=== PATIENT | male | born 1965 | race American Indian/Alaskan Native ===

== ENCOUNTER 2016-11-04 09:29 | Emergency (ER) | payer SELFPAY ==
[2016-11-04 09:44] VITALS: BP 152/95
--- NOTE | 2016-11-04 10:01 | Emergency Department Report ---
ED ENT HPI - General Chief complaint: Earache Stated complaint: RIGHT EAR PAIN Time Seen by Provider: 11/04/16 09:56 Source: patient Mode of arrival: Ambulatory Limitations: No Limitations - History of Present Illness Initial comments: 51 y/o male complain of possible bug in right ear x 3 days .pt state his right ear feel clogged up and think maybe a bug flew in his right ear x 3 days..pt denies any hearing loss or drainage from ear . complaint: ear pain Onset/Timin -: days(s) Location: R ear Severity scale (0 -10): 0 Consistency: now resolved Improves with: none Worsens with: none - Related Data Home Medications Medication Instructions Recorded Confirmed Last Taken Aspirin [Adult Low Dose Aspirin EC] 81 mg PO QDAY 11/04/16 11/04/16 11/03/16 07: 00 Carvedilol [Coreg] 25 mg PO BID 11/04/16 11/04/16 11/04/16 07:00 amLODIPine [Norvasc] 10 mg PO DAILY 11/04/16 11/04/16 11/04/16 07:00 Previous Rx's Medication Instructions Recorded Last Taken Type Amoxicillin [Amoxicillin TAB] 875 mg PO BID #14 tablet 11/04/16 Unknown Rx Cetirizine HCl [ZyrTEC] 10 mg PO BID #30 capsule 11/04/16 Unknown Rx Allergies Allergy/AdvReac Type Severity Reaction Status Date / Time No Known Allergies Allergy Unverified 11/04/16 09:38 ED Dental HPI - General Chief complaint: Earache Stated complaint: RIGHT EAR PAIN Time Seen by Provider: 11/04/16 09:56 Source: patient Mode of arrival: Ambulatory Limitations: No Limitations - Related Data Home Medications Medication Instructions Recorded Confirmed Last Taken Aspirin [Adult Low Dose Aspirin EC] 81 mg PO QDAY 11/04/16 11/04/16 11/03/16 07: 00 Carvedilol [Coreg] 25 mg PO BID 11/04/16 11/04/16 11/04/16 07:00 amLODIPine [Norvasc] 10 mg PO DAILY 11/04/16 11/04/16 11/04/16 07:00 Previous Rx's Medication Instructions Recorded Last Taken Type Amoxicillin [Amoxicillin TAB] 875 mg PO BID #14 tablet 11/04/16 Unknown Rx Cetirizine HCl [ZyrTEC] 10 mg PO BID #30 capsule 11/04/16 Unknown Rx Allergies Allergy/AdvReac Type Severity Reaction Status Date / Time No Known Allergies Allergy Unverified 11/04/16 09:38 ED Review of Systems ROS: Stated complaint: RIGHT EAR PAIN Other details as noted in HPI Constitutional: denies: chills, fever Eyes: denies: eye pain, eye discharge, vision change ENT: ear pain. denies: throat pain Respiratory: denies: cough, shortness of breath, wheezing Cardiovascular: denies: chest pain, palpitations Endocrine: no symptoms reported Gastrointestinal: denies: abdominal pain, nausea, diarrhea Genitourinary: denies: urgency, dysuria Musculoskeletal: denies: back pain, joint swelling, arthralgia Skin: denies: rash, lesions Neurological: denies: headache, weakness, paresthesias Psychiatric: denies: anxiety, depression Hematological/Lymphatic: denies: easy bleeding, easy bruising ED Past Medical Hx - Past Medical History Hx Hypertension: Yes - Surgical History Hx Appendectomy: Yes - Social History Smoking Status: Current Every Day Smoker Substance Use Type: None - Medications Home Medications: Home Medications Medication Instructions Recorded Confirmed Last Taken Type Amoxicillin [Amoxicillin TAB] 875 mg PO BID #14 tablet 11/04/16 Unknown Rx Aspirin [Adult Low Dose Aspirin EC] 81 mg PO QDAY 11/04/16 11/04/16 11/03/16 07: 00 History Carvedilol [Coreg] 25 mg PO BID 11/04/16 11/04/16 11/04/16 07:00 History Cetirizine HCl [ZyrTEC] 10 mg PO BID #30 capsule 11/04/16 Unknown Rx amLODIPine [Norvasc] 10 mg PO DAILY 11/04/16 11/04/16 11/04/16 07:00 History ED Physical Exam - General Limitations: No Limitations General appearance: alert, in no apparent distress - Head Head exam: Present: atraumatic, normocephalic - Eye Eye exam: Present: normal appearance, PERRL - ENT ENT exam: Present: mucous membranes moist - Expanded ENT Exam Expanded Ear exam: Present: normal external inspection TM/Canal exam: Erythema: Right TM, Effusion: Right TM Mouth exam: Present: normal external inspection Teeth exam: Present: normal inspection Throat exam: Positive: normal inspection - Neck Neck exam: Present: normal inspection - Respiratory Respiratory exam: Present: normal lung sounds bilaterally. Absent: respiratory distress - Cardiovascular Cardiovascular Exam: Present: regular rate, normal rhythm. Absent: systolic murmur, diastolic murmur, rubs, gallop - GI/Abdominal GI/Abdominal exam: Present: soft, normal bowel sounds - Rectal Rectal exam: Present: deferred - Extremities Exam Extremities exam: Present: normal inspection - Back Exam Back exam: Present: normal inspection - Neurological Exam Neurological exam: Present: alert, oriented X3 - Psychiatric Psychiatric exam: Present: normal affect, normal mood - Skin Skin exam: Present: warm, dry, intact, normal color. Absent: rash ED Course Vital Signs 11/04/16 09:35 Temperature 99.0 F Pulse Rate 72 Respiratory 19 Rate Blood Pressure 152/95 O2 Sat by Pulse 100 Oximetry ED Medical Decision Making - Medical Decision Making Right otitis media with effusion .pt state that he will follow up with primary care doctor next week . Critical care attestation.: If time is entered above; I have spent that time in minutes in the direct care of this critically ill patient, excluding procedure time. ED Disposition Clinical Impression: Otitis media with effusion Qualifiers: Laterality: right Qualified Code(s): H65.91 - Unspecified nonsuppurative otitis media, right ear Disposition: DISCHARGED TO HOME OR SELFCARE Is pt being admited?: No Does the pt Need Aspirin: No Condition: Stable Instructions: Otitis Media (ED) Additional Instructions: Keep appointment with primary care doctor next week Prescriptions: Amoxicillin [Amoxicillin TAB] 875 mg PO BID #14 tablet Cetirizine HCl [ZyrTEC] 10 mg PO BID #30 capsule Forms: Work/School Release Form(ED) Time of Disposition: 10:09
== END 2016-11-04 10:15 | disposition home or self-care (01) ==
LOC: ED 09:29
DX: H65.91 Unspecified nonsuppurative otitis media, right ear (principal); I10 Essential (primary) hypertension; F17.200 Nicotine dependence, unspecified, uncomplicated; Z79.82 Long term (current) use of aspirin
CPT/HCPCS: 99282

== ENCOUNTER 2018-07-16 17:53 | Emergency (ER) | payer BC ==
[2018-07-16] MEDS ORDERED: TORADOL IM ONE (18:43)
--- NOTE | 2018-07-16 18:47 | Emergency Department Report ---
ED Back Pain/Injury HPI - General Chief Complaint: Back Pain/Injury Stated Complaint: BACK PAIN Time Seen by Provider: 07/16/18 18:43 Source: patient Limitations: No Limitations - History of Present Illness Initial Comments: This is a 53-year-old male presents with low back pain. Patient states that pain started 4 years ago been fine until Sunday afternoon. Patient states he was playing with his sign and when he bit down to pull his sign he felt sharp pain to lower back. He applied heat and pants with some improvement of pain. Patient reports pain is worse at this evening long periods of time or with movement. He decided to come in today after picking up his sign and he felt excruciating pain to lower back. He currently reports pain is 10 out of 10 on pain scale. Patient reports history of hypertension but is not taking medication over the past 3 days because he is focused on pain. Patient denies numbness or tingling, radiating pain, erythema, swelling, weakness, paresthesias , nausea or vomiting, change in bowel avoid him pattern, or chest pain. MD Complaint: back pain (low back pain) Onset/Timin -: days(s) Similar Symptoms Previously: Yes Place: home Radiation: none Severity: severe Severity scale (0 -10): 10 Quality: sharp Consistency: intermittent Improves With: supine Worsens With: movement, sitting upright Context: bending Associated Symptoms: denies other symptoms Treatments Prior to Arrival: heat therapy, NSAIDS - Related Data Home Medications Medication Instructions Recorded Confirmed Last Taken Aspirin [Adult Low Dose Aspirin EC] 81 mg PO QDAY 11/04/16 11/04/16 11/03/16 07: 00 Carvedilol [Coreg] 25 mg PO BID 11/04/16 11/04/16 11/04/16 07:00 amLODIPine [Norvasc] 10 mg PO DAILY 11/04/16 11/04/16 11/04/16 07:00 Previous Rx's Medication Instructions Recorded Last Taken Type Amoxicillin [Amoxicillin TAB] 875 mg PO BID #14 tablet 11/04/16 Unknown Rx Cetirizine HCl [ZyrTEC] 10 mg PO BID #30 capsule 11/04/16 Unknown Rx Naproxen [Naprosyn] 500 mg PO TID PRN #12 tablet 07/16/18 Unknown Rx methOCARBAMOL [Robaxin TAB] 500 mg PO BID #10 tab 07/16/18 Unknown Rx traMADol [Ultram 50 MG tab] 50 mg PO Q6HR PRN #8 tablet 07/16/18 Unknown Rx Allergies Allergy/AdvReac Type Severity Reaction Status Date / Time No Known Allergies Allergy Unverified 11/04/16 09:38 ED Review of Systems ROS: Stated complaint: BACK PAIN Other details as noted in HPI Constitutional: denies: chills, fever Respiratory: denies: cough, shortness of breath, wheezing Cardiovascular: denies: chest pain, palpitations Gastrointestinal: denies: abdominal pain, nausea, diarrhea Musculoskeletal: back pain (lower back pain). denies: joint swelling, arthralgia Skin: denies: rash, lesions Neurological: denies: headache, weakness, paresthesias Psychiatric: denies: anxiety, depression ED Back Pain Physical Exam - Exam General: Vital signs noted. No distress. Alert and acting appropriately. Back/Abdomen: Yes Sacroiliac Tenderness (bilateral), No Abdominal Tenderness, No Perithoracic Tenderness, No Perilumbar Tenderness, No Flank Tenderness, No Straight Leg Raise Pain Neuro: Yes Normal Sensation, Yes Normal DTR's, Yes Normal Gait, No Motor Weakness ED Course Vital Signs 07/16/18 18:00 Temperature 98.7 F Pulse Rate 70 Respiratory 16 Rate Blood Pressure 195/103 O2 Sat by Pulse 98 Oximetry Ed Back Pain Tests - Tests Tests: Normal X Rays ED Medical Decision Making - Radiology Data Radiology results: report reviewed, image reviewed FINAL REPORT PROCEDURE: XR SPINE LUMBOSACRAL 2-3V TECHNIQUE: Lumbosacral spine, AP and lateral views HISTORY: low back pain COMPARISON: No prior studies are available for comparison. FINDINGS: Vertebral body heights and alignment are maintained. Disc spaces are preserved. No scoliosis. IMPRESSION: No acute abnormality is seen - Medical Decision Making Patient was examined by me. Blood pressure elevated on arrival. Patient given clonidine 0.1 mg by mouth once. Past medical history of hypertension. Patient has not taken medication in the past 2 days. He is asymptomatic. Given Toradol 30 mg IM once while in ER. Obtained a x-ray of L-spine. X-rays dictated by radiologist with no acute findings. Patient informed of results. Reevaluation of vitals, blood pressure trended down. Start naproxen, tramadol, and robaxin for muscle strain. Patient has no past prescription history accordance of [employer]. Referral to orthopedic surgery for continued care. Patient discharged home in stable condition. Follow up with PCP in 2-3 days. Critical care attestation.: If time is entered above; I have spent that time in minutes in the direct care of this critically ill patient, excluding procedure time. ED Disposition Clinical Impression: Strain of muscle, fascia and tendon of lower back, initial encounter, Asymptomatic hypertension Low back pain Qualifiers: Chronicity: acute Back pain laterality: bilateral Sciatica presence: without sciatica Qualified Code(s): M54.5 - Low back pain Disposition: TO HOME OR SELFCARE Is pt being admited?: No Does the pt Need Aspirin: No Condition: Stable Instructions: Low Back Strain (ED), Core Strengthening Exercises (GEN), Hypertension (ED), RICE Therapy (ED) Additional Instructions: Rest Use ice or heat on affected area for 20 minutes and off for 2 hours. Take pain medication as needed for pain. Don't drive or operate heavy machinery while taking muscle relaxers because they may cause drowsiness. Follow up with Primary Care Provider in 2-3 days. Prescriptions: methOCARBAMOL [Robaxin TAB] 500 mg PO BID #10 tab Naproxen [Naprosyn] 500 mg PO TID PRN #12 tablet PRN Reason: Pain , Severe (7-10) traMADol [Ultram 50 MG tab] 50 mg PO Q6HR PRN #8 tablet PRN Reason: Pain Referrals: MARIANO ARRIAGA MD [Staff Physician] - 3-5 Days [facility] [Outside] - 3-5 Days Forms: Work/School Release Form(ED) Time of Disposition: 19:56
[2018-07-16] MEDS ORDERED: CATAPRES PO ONE (19:09)
[2018-07-16 19:18] VITALS: BP 179/102
--- NOTE | 2018-07-16 19:40 | XRay Report ---
FINAL REPORT PROCEDURE: XR SPINE LUMBOSACRAL 2-3V TECHNIQUE: Lumbosacral spine, AP and lateral views HISTORY: low back pain COMPARISON: No prior studies are available for comparison. FINDINGS: Vertebral body heights and alignment are maintained. Disc spaces are preserved. No scoliosis. IMPRESSION: No acute abnormality is seen
== END 2018-07-16 20:00 | disposition home or self-care (01) ==
LOC: ED 17:53
DX: S39.012A Strain of muscle, fascia and tendon of lower back, initial encounter (principal); I10 Essential (primary) hypertension; Z79.82 Long term (current) use of aspirin; X58.XXXA Exposure to other specified factors, initial encounter; Y93.89 Activity, other specified; Y92.89 Other specified places as the place of occurrence of the external cause; Y99.8 Other external cause status
CPT/HCPCS: 72100; 96372; 99283; J1885